=== PATIENT | female | born 1930 | race Caucasian/White ===

== ENCOUNTER 2017-03-13 09:37 | Observation (INO) | payer OTHER ==
[2017-03-13] MEDS ORDERED: LORazepam 2 MG/ML INJ IVP ONE (09:59)
[2017-03-13] MEDS ORDERED: NS 1,000 ML IV ONE ×2 (09:59→11:03)
[2017-03-13] MEDS ORDERED: LORazepam 2 MG/ML INJ ONE (10:00)
--- NOTE | 2017-03-13 10:05 | EDPHY ---
H & P Stated Complaint: increasing episodes and intensity of essential tremor Source: Patient, Family Exam Limitations: No limitations - Personal History Current Tetanus/Diphtheria Vaccine: Yes - Medical/Surgical History Hx Asthma: No Hx Chronic Respiratory Disease: Yes Hx Diabetes: No Hx Cardiac Disease: No Hx Renal Disease: No Hx Cirrhosis: No Hx Alcoholism: No Hx HIV/AIDS: No Hx Splenectomy or Spleen Trauma: No Other PMH: tremors/ruling out parkinsons - Social History Smoking Status: Never smoked HPI/ROS: CHIEF COMPLAINT: Worsening tremors HISTORY OF PRESENT ILLNESS: Patient presents with spouse and neighbor. They report that she was in [employer] this morning when she had a sudden onset of worsening tremor. She shaking all over. This is been constant for the past hour. Significantly worse than previous. She was diagnosed with essential tremor 18 months ago. She has been on medication for this, but she does not know which 1 of this. She does have a mild headache on the temples. Denies sudden onset headache. Denies severe headache. No neck pain or stiffness. No chest pain. No cough. No runny nose or sore throat. No abdominal pain. She does report dysuria and more frequent urination recently. No rashes sores or lesions. The patient's spouse feels this may be tremors and that they have decreased in intensity over the past few months. Today's is the worst she has ever had. No other associated complaints or modifying factors. REVIEW OF SYSTEMS: Ten systems reviewed and are negative unless otherwise noted in the HPI PCP: Dr. Rivers at [facility] SPECIALISTS: None PAST MEDICAL HISTORY: COPD (never smoker), GERD, hypertension, dyslipidemia PAST SURGICAL HISTORY: Multiple. Denies previous cholecystectomy or appendectomy. SOCIAL HISTORY: Never smoked. No alcohol. Lives with her spouse here in [place]. FAMILY HISTORY: Noncontributory EXAMINATION General Appearance: Alert, no distress, rigors Head: normocephalic, atraumatic the Eyes: Pupils equal and round, no conjunctival pallor or injection ENT, Mouth: Mucous membranes moist. Airway patent. Uvula midline. No erythema or edema. Neck: Normal inspection, supple, non-tender Respiratory: Lungs are clear to auscultation. No wheezing, rhonchi or crackles Cardiovascular: Regular rate and rhythm. No murmur. Pulses intact distally symmetrically Gastrointestinal: Abdomen is soft and nontender no tympany rigidity pet distension Neurological: GCS 15. A&O, nonfocal, strength is symmetric. Skin: Warm and dry, no rash. No petechiae or purpura. No abscesses or lesions Extremities: Nontender, no pedal edema. Range of motion is symmetric Psychiatric: Mood and affect normal DIFFERENTIAL DIAGNOSES: Including but not limited to sepsis, pneumonia, UTI, cholecystitis, colitis, diverticulitis, tremor MDM: 10:00 a.m. Patient is complaining of tremors, but she appears to be ill. She does appear to have rigors. She is tachycardic and tachypneic. We recognize this immediately in ordered lactic acid, blood cultures and sepsis workup. She is awake and alert conversing appropriately. She is not encephalopathic or delirious. I have ordered chest x-ray, laboratory studies, flu swab, urinalysis. All order IV fluid at this time. Also 0.5 mg of Ativan to help with her shaking. I do not feel this is essential tremor. Why do feel that she is ill, I also feel that she is stable at this time. Dr. Lovett is aware the patient and will evaluate. 10:13 a.m. Patient re-evaluated. She is IV fluid infusing. She has received point of Ativan. She is significantly more comfortable. Her vital signs have improved now. Heart rate is 76 beats per minute. Blood pressure is normotensive. 10:25 a.m. Lactic acid is 5.6. Will continue with the appropriate weight based IV fluid resuscitation. She is awake and alert. I have re-evaluated her she is feeling significantly better. Urinalysis obtained by catheterization. Suspect urosepsis. Chest x-ray has been ordered but not yet taken. 10:30 a.m. Due to the elevated lactic acid I discussed with Dr. Lovett. We have concern for foul-smelling urine, thus I have ordered Levaquin. Chest x-ray pending. 10:55 a.m. Chest x-ray does not reveal any obvious pneumonia as read by me and by Dr. Lovett. Proceed with irrigation recheck lactic acid 11:20 a.m. Recheck lactic acid is within normal limits. Still do not have a source for sepsis, but we are covering for the possibility of urosepsis. She is feeling better with occasional tremors. Proceed with admission to the hospital. 11:25 a.m. Case discussed with Marley at [facility] ([phone]). She is given approval for the patient be admitted our facility. Proceed with admission to our facility. Hospitalist paged 11:45 a.m. Case discussed with hospitalist, Bianca TEJEDA. Patient is admitted to Dr. Simpson. She is admitted in stable condition. Still do not have a clear etiology if this is sepsis, cryptogenic sepsis. She does have occasional rigors. Continue to monitor. Urine culture pending. Blood cultures pending (Donato Chau) Constitutional: Initial Vital Signs Temperature (C) 98.2 F 03/13/17 09:43 Heart Rate 108 H 03/13/17 09:43 Respiratory Rate 26 H 03/13/17 09:43 Blood Pressure 160/89 H 03/13/17 09:43 O2 Sat (%) 93 03/13/17 09:43 O2 Delivery Mode Room Air Allergies/Adverse Reactions: adhesive tape Allergy (Intermediate, Verified 03/13/17 15:52) Rash Home Medications: Medication Instructions Recorded Albuterol [Ventolin Hfa Inhaler] 2 puffs IH Q4 PRN 03/13/17 Aspirin [Aspirin 325 mg (*)] 650 mg PO Q4 PRN 03/13/17 Aspirin [Aspirin 81mg (*)] 81 mg PO HS 03/13/17 Herbals/Supplements -Info Only 1 ea PO DAILY 03/13/17 LISINOPRIL/HYDROCHLOROTHIAZIDE 0.5 each PO DAILY 03/13/17 [PRINZIDE 20-25 MG TABLET] Multivitamins [Multivitamin (*)] 1 each PO DAILY 03/13/17 Pantoprazole Sodium [Protonix 40mg 40 mg PO BID 03/13/17 (*)] Primidone [Mysoline 50mg (RX)] 25 mg PO DAILY 03/13/17 Simvastatin [Zocor] 20 mg PO DAILY 03/13/17 Tiotropium Inhaler [Spiriva 2 inh IH DAILY 03/13/17 Inhaler] Vitamin B Complex [B Complex] 1 each PO DAILY 03/13/17 Medical Decision Making - Diagnostics Imaging Results: Imaging Impressions Chest X-Ray 03/13/17 10:00 Impression: 1. Mild cardiomegaly. 2. Moderate hiatal hernia suspected. 3. Rounded density right lung base medially that could represent eventration of the right hemidiaphragm versus pericardial cyst although these were not mentioned on prior imaging reports. If indicated, consider PA and lateral review of the chest for further characterization or if indicated CT imaging. ED Course/Re-evaluation: The patient was evaluated and managed by the physician's recovery assistant. My cosignature indicates that I reviewed the chart and I agree with the findings and plan of care as documented. I am the secondary supervising physician. Personally evaluated the patient and saw her immediately after the PAs evaluation. Patient states that her regular started while at [employer]. She was feeling well prior to the onset. He came on fairly suddenly. Patient has chronic shortness of breath and is not currently worse. No chest pain. No abdominal pain, nausea or vomiting. She has had no diarrhea. She describes mild dysuria. GENERAL: Mild acute distress, alert. Shaking HEENT: Eyes normal to inspection, normal pharynx, no signs of dehydration. NECK: No thyromegaly, no lymphadenopathy, supple. RESPIRATORY: Increased RR. Clear to auscultation bilaterally, no rales, rhonchi or wheezing. CVS: Mild tachycardia, no rubs, murmurs, or gallops. ABDOMEN: Soft, nontender, nondistended, no organomegaly. BACK: Normal to inspection, no CVA tenderness. SKIN: Normal color, no rash, warm, dry. No pallor. EXTREMITIES: [No pedal edema, no calf tenderness, no Homans sign or cords, no joint swelling. NEURO/PSYCH: [Alert and oriented x3, normal mood and affect, normal motor sensory exam. 10:13: I rechecked the patient. She was feeling better. Heart rate was in the 80s. (Manasa Lovett) - Data Points Laboratory Results: Laboratory Results 03/13/17 10:15 03/13/17 10:30 03/13/17 03/13/17 03/13/17 11:08 10:30 10:15 WBC RBC Hgb Hct MCV MCH MCHC RDW Plt Count MPV Neut % (Auto) Lymph % (Auto) [place] % (Auto) Eos % (Auto) Baso % (Auto) Nucleat RBC Rel Count Absolute Neuts (auto) Absolute Lymphs (auto) Absolute Monos (auto) Absolute Eos (auto) Absolute Basos (auto) Absolute Nucleated RBC Immature Gran % Immature Gran # ESR PT INR APTT VBG Lactic Acid 1.4 mmol/L mmol/L (0.7-2.1) Sodium 135 mEq/L mEq/L (134-144) Potassium 3.6 mEq/L mEq/L (3.5-5.2) Chloride 102 mEq/L mEq/L (97-110) Carbon Dioxide 23 mEq/l mEq/l (22-31) Anion Gap 10 mEq/L mEq/L (8-16) BUN 18 mg/dL mg/dL (7-23) Creatinine 0.8 mg/dL mg/dL (0.6-1.0) Estimated GFR > 60 Glucose 83 mg/dL mg/dL (70-100) Calcium 8.1 mg/dL L mg/dL (8.5-10.4) Total Bilirubin 0.4 mg/dL mg/dL (0.1-1.4) Conjugated Bilirubin 0.2 mg/dL mg/dL (0.0-0.5) Unconjugated Bilirubin 0.2 mg/dL mg/dL (0.0-1.1) AST 17 IU/L IU/L (14-46) ALT 24 IU/L IU/L (9-52) Alkaline Phosphatase 72 IU/L IU/L (38-126) Creatine Kinase 46 IU/L IU/L (0-156) Troponin I 0.015 ng/mL ng/mL (0.000-0.034) C-Reactive Protein < 5.0 mg/L mg/L (<10.0) Total Protein 5.8 g/dL L g/dL (6.3-8.2) Albumin 3.3 g/dL L g/dL (3.5-5.0) Lipase 49 IU/L IU/L (23-300) Procalcitonin Urine Color Urine Appearance Urine pH Ur Specific Reagan Urine Protein Urine Ketones Urine Blood Urine Nitrate Urine Bilirubin Urine Urobilinogen Ur Leukocyte Esterase Urine RBC Cancelled Urine WBC Cancelled Ur Epithelial Cells Cancelled Ur Renal Epithelial Cell Cancelled Urine Crystals Cancelled Ammonium Urate Crystals Cancelled Calcium Carbonate Cryst Cancelled Calcium Phosphate Cryst Cancelled Calcium Oxalate Crystal Cancelled Leucine Crystals Cancelled Cystine Crystals Cancelled Uric Acid Crystals Cancelled Triple Phos Crystals Cancelled Sulfonamide Crystals Cancelled Cholesterol Crystals Cancelled Tyrosine Crystals Cancelled Bilirubin Crystals Cancelled Amorphous Sediment Cancelled Urine Bacteria Cancelled Epithelial Casts Cancelled Fatty Casts Cancelled Hyaline Casts Cancelled Granular Casts Cancelled Waxy Casts Cancelled Broad Casts Cancelled RBC Casts Cancelled WBC Casts Cancelled Urine Mucus Cancelled Urine Trichomonas Cancelled Urine Yeast Cancelled Urine Sperm Cancelled Ur Oval Fat Bodies Cancelled Ur Free Fat Droplets Cancelled Urine Glucose Urine Comment Cancelled 03/13/17 03/13/17 03/13/17 10:15 10:15 10:15 WBC RBC Hgb Hct MCV MCH MCHC RDW Plt Count MPV Neut % (Auto) Lymph % (Auto) [place] % (Auto) Eos % (Auto) Baso % (Auto) Nucleat RBC Rel Count Absolute Neuts (auto) Absolute Lymphs (auto) Absolute Monos (auto) Absolute Eos (auto) Absolute Basos (auto) Absolute Nucleated RBC Immature Gran % Immature Gran # ESR PT 12.3 SEC SEC (12.0-15.0) INR 0.92 (0.83-1.16) APTT 21.1 SEC L SEC (23.0-38.0) VBG Lactic Acid Sodium REJ Potassium REJ Chloride REJ Carbon Dioxide REJ Anion Gap REJ BUN REJ Creatinine REJ Estimated GFR REJ Glucose REJ Calcium REJ Total Bilirubin REJ Conjugated Bilirubin REJ Unconjugated Bilirubin REJ AST REJ ALT REJ Alkaline Phosphatase REJ Creatine Kinase Troponin I REJ C-Reactive Protein REJ Total Protein REJ Albumin REJ Lipase REJ Procalcitonin REJ Urine Color YELLOW Urine Appearance CLEAR Urine pH 5.0 (5.0-7.5) Ur Specific Reagan 1.012 (1.002-1.030) Urine Protein NEGATIVE (NEGATIVE) Urine Ketones NEGATIVE (NEGATIVE) Urine Blood NEGATIVE (NEGATIVE) Urine Nitrate NEGATIVE (NEGATIVE) Urine Bilirubin NEGATIVE (NEGATIVE) Urine Urobilinogen NEGATIVE EU EU (0.2-1.0) Ur Leukocyte Esterase NEGATIVE (NEGATIVE) Urine RBC NONE SEEN /hpf /hpf (0-3) Urine WBC 1-3 /hpf /hpf (0-3) Ur Epithelial Cells TRACE /lpf /lpf (NONE-1+) Ur Renal Epithelial Cell Urine Crystals Ammonium Urate Crystals Calcium Carbonate Cryst Calcium Phosphate Cryst Calcium Oxalate Crystal Leucine Crystals Cystine Crystals Uric Acid Crystals Triple Phos Crystals Sulfonamide Crystals Cholesterol Crystals Tyrosine Crystals Bilirubin Crystals Amorphous Sediment Urine Bacteria Epithelial Casts Fatty Casts Hyaline Casts Granular Casts Waxy Casts Broad Casts RBC Casts WBC Casts Urine Mucus Urine Trichomonas Urine Yeast Urine Sperm Ur Oval Fat Bodies Ur Free Fat Droplets Urine Glucose NEGATIVE (NEGATIVE) Urine Comment 03/13/17 03/13/17 10:15 10:15 WBC 8.73 10^3/uL 10^3/uL (3.80-9.50) RBC 4.01 10^6/uL L 10^6/uL (4.18-5.33) Hgb 11.9 g/dL L g/dL (12.6-16.3) Hct 36.7 % L % (38.0-47.0) MCV 91.5 fL fL (81.5-99.8) MCH 29.7 pg pg (27.9-34.1) MCHC 32.4 g/dL g/dL (32.4-36.7) RDW 13.9 % % (11.5-15.2) Plt Count 261 10^3/uL 10^3/uL (150-400) MPV 10.6 fL fL (8.7-11.7) Neut % (Auto) 54.9 % % (39.3-74.2) Lymph % (Auto) 30.5 % % (15.0-45.0) [place] % (Auto) 10.3 % % (4.5-13.0) Eos % (Auto) 3.2 % % (0.6-7.6) Baso % (Auto) 0.8 % % (0.3-1.7) Nucleat RBC Rel Count 0.0 % % (0.0-0.2) Absolute Neuts (auto) 4.79 10^3/uL 10^3/uL (1.70-6.50) Absolute Lymphs (auto) 2.66 10^3/uL 10^3/uL (1.00-3.00) Absolute Monos (auto) 0.90 10^3/uL H 10^3/uL (0.30-0.80) Absolute Eos (auto) 0.28 10^3/uL 10^3/uL (0.03-0.40) Absolute Basos (auto) 0.07 10^3/uL 10^3/uL (0.02-0.10) Absolute Nucleated RBC 0.00 10^3/uL 10^3/uL (0-0.01) Immature Gran % 0.3 % % (0.0-1.1) Immature Gran # 0.03 10^3/uL 10^3/uL (0.00-0.10) ESR 90 MM/HR H MM/HR (0-30) PT INR APTT VBG Lactic Acid 5.6 mmol/L H mmol/L (0.7-2.1) Sodium Potassium Chloride Carbon Dioxide Anion Gap BUN Creatinine Estimated GFR Glucose Calcium Total Bilirubin Conjugated Bilirubin Unconjugated Bilirubin AST ALT Alkaline Phosphatase Creatine Kinase Troponin I C-Reactive Protein Total Protein Albumin Lipase Procalcitonin Urine Color Urine Appearance Urine pH Ur Specific [place] Urine Protein Urine Ketones Urine Blood Urine Nitrate Urine Bilirubin Urine Urobilinogen Ur Leukocyte Esterase Urine RBC Urine WBC Ur Epithelial Cells Ur Renal Epithelial Cell Urine Crystals Ammonium Urate Crystals Calcium Carbonate Cryst Calcium Phosphate Cryst Calcium Oxalate Crystal Leucine Crystals Cystine Crystals Uric Acid Crystals Triple Phos Crystals Sulfonamide Crystals Cholesterol Crystals Tyrosine Crystals Bilirubin Crystals Amorphous Sediment Urine Bacteria Epithelial Casts Fatty Casts Hyaline Casts Granular Casts Waxy Casts Broad Casts RBC Casts WBC Casts Urine Mucus Urine Trichomonas Urine Yeast Urine Sperm Ur Oval Fat Bodies Ur Free Fat Droplets Urine Glucose Urine Comment Medications Given: Discontinued Medications Sodium Chloride (Ns) 1,000 mls @ 0 mls/hr IV EDNOW ONE; Wide Open PRN Reason: Protocol Stop: 03/13/17 10:00 Last Admin: 03/13/17 10:06 Dose: 1,000 mls Levofloxacin/Dextrose (Levaquin 750 Mg (Premix)) 150 mls @ 100 mls/hr IV EDNOW ONE PRN Reason: Protocol Stop: 03/13/17 12:13 Last Admin: 03/13/17 11:00 Dose: 150 mls Sodium Chloride (Ns) 1,800 mls @ 300 mls/hr 30 ml/kg infuse over 6 hr (1800 ml ) IV EDNOW ONE PRN Reason: Protocol Stop: 03/13/17 16:43 Last Admin: 03/13/17 11:02 Dose: Not Given Sodium Chloride (Ns) 1,000 mls @ 0 mls/hr IV ONCE ONE PRN Reason: Wide Open Stop: 03/13/17 11:04 Last Admin: 03/13/17 11:03 Dose: 1,000 mls Lorazepam (Ativan Injection) 0.5 mg IVP EDNOW ONE Stop: 03/13/17 10:00 Last Admin: 03/13/17 10:06 Dose: 0.5 mg Departure - Departure Disposition: [facility] Acute Clinical Impression: Lactic acidosis, Rigors Sepsis Qualifiers: Sepsis type: sepsis due to unspecified organism Qualified Code(s): A41.9 - Sepsis, unspecified organism Condition: Good
[2017-03-13 10:22] LABS: % IMMATURE GRANULYOCYTES 0.3 % (0.0-1.1); ABSOLUTE IMMATURE GRANULOCYTES 0.03 10^3/uL (0.00-0.10); ADD DIFF? NO; ADD MORPH? NO; ADD SCAN? NO; ATYPICAL LYMPHOCYTE FLAG 10 (0-99); FRAGMENT RBC FLAG 0 (0-99); HEMATOCRIT 36.7 % (38.0-47.0); HEMOGLOBIN 11.9 g/dL (12.6-16.3); LEFT SHIFT FLG 0 (0-99); LIPEMIA HEMOLYSIS FLAG 80 (0-99); MEAN CELL HEMOGLOBIN 29.7 pg (27.9-34.1); MEAN CELL HEMOGLOBIN CONCENTR. 32.4 g/dL (32.4-36.7); MEAN CELL VOLUME 91.5 fL (81.5-99.8); MEAN PLATELET VOLUME 10.6 fL (8.7-11.7); PLATELET CLUMPS FLAG 0 (0-99); PLATELET COUNT 261 10^3/uL (150-400); RED BLOOD CELL COUNT 4.01 10^6/uL (4.18-5.33); RED CELL DISTRIBUTION WIDTH 13.9 % (11.5-15.2)
[2017-03-13 10:31] LABS: INR 0.92 (0.83-1.16); PROTIME(PATIENT) 12.3 SEC (12.0-15.0)
[2017-03-13 10:32] LABS: APTT 21.1 SEC (23.0-38.0)
[2017-03-13 10:33] LABS: COLOR YELLOW; LEUKOCYTE ESTERASE,URINE NEGATIVE (NEGATIVE); NITRITE,URINE NEGATIVE (NEGATIVE)
[2017-03-13 10:35] LABS: LACGHOST ORDER
[2017-03-13] MEDS ORDERED: NS 1,800 ML IV ONE (10:44)
[2017-03-13 10:46] LABS: RBC,URINE NONE SEEN /hpf (0-3)
[2017-03-13 10:48] LABS: SEDIMENTATION RATE 90 MM/HR (0-30)
--- NOTE | 2017-03-13 10:58 | CPEKG ---
Heart Rate: 79 RR Interval: 759 QRSD Interval: 114 QT Interval: 440 QTC Interval: 505 QRS [place]: 32 T Wave [place]: 25 EKG Severity - ABNORMAL ECG - EKG Impression: ATRIAL FIBRILLATION EKG Impression: NONSPECIFIC INTRAVENTRICULAR CONDUCTION DELAY Electronically Signed By: Manasa Lovett 13-Mar-2017 14:26:42
[2017-03-13 11:01] LABS: ALANINE AMINOTRANSFERASE 24 IU/L (9-52); ALBUMIN 3.3 g/dL (3.5-5.0); ALKALINE PHOSPHATASE 72 IU/L (38-126); ANION GAP 10 mEq/L (8-16); ASPARTATE AMINOTRANSFERASE 17 IU/L (14-46); BILIRUBIN,TOTAL 0.4 mg/dL (0.1-1.4); BILIRUBIN-CONJUGATED 0.2 mg/dL (0.0-0.5); BILIRUBIN-UNCONJUGATED 0.2 mg/dL (0.0-1.1); C-REACTIVE PROTEIN < 5.0 mg/L (<10.0); CALCIUM 8.1 mg/dL (8.5-10.4); CARBON DIOXIDE 23 mEq/l (22-31); CHLORIDE 102 mEq/L (97-110); CREATININE 0.8 mg/dL (0.6-1.0); GLOMERULAR FILTRATION RATE > 60; GLUCOSE 83 mg/dL (70-100); POTASSIUM 3.6 mEq/L (3.5-5.2); SODIUM 135 mEq/L (134-144); TOTAL PROTEIN 5.8 g/dL (6.3-8.2)
[2017-03-13 11:10] LABS: TROPONIN I 0.015 ng/mL (0.000-0.034)
[2017-03-13 15:38] VITALS: RESP 16
[2017-03-13] MEDS ORDERED: ONDANSETRON 4 MG/2 ML VIAL IVP PRN (16:48)
[2017-03-13] MEDS ORDERED: ALBUTEROL 3 ML DEYVIAL IH PRN (16:48)
[2017-03-13] MEDS ORDERED: ONDANSETRON DISINTEGRATING 4 MG TAB PO PRN (16:48)
[2017-03-13] MEDS ORDERED: LORazepam 0.5 MG TAB PO PRN (16:48)
[2017-03-13] MEDS ORDERED: ACETAMINOPHEN 325 MG TAB PO PRN (16:48)
[2017-03-13] MEDS ORDERED: LISINOPRIL PO SCH (17:00)
[2017-03-13] MEDS ORDERED: HYDROCHLOROTHIAZIDE PO SCH (17:00)
[2017-03-13] MEDS ORDERED: [UNRECOGNIZED DRUG - OTHER] PO SCH (17:00)
--- NOTE | 2017-03-13 17:24 | GHP ---
[f rep st] HISTORY AND PHYSICAL DATE OF ADMISSION: 03/13/2017 CHIEF COMPLAINT: Tremors. HISTORY OF PRESENT ILLNESS: This is an 86-year-old female, who approximately 18 months ago was diagn osed with an essential tremor by her physician, Dr. Rivers, at [facility]. She has since that time been o n medication and has had some improvement with the use of medication in her essential tremor. Today, she was in muslim and suddenly had shaking all over and weakness, along with a severe headache rated 7 or 8/10. The headache was bitemporal, not associated with a scotomata, although she felt weak and there was no vertigo. Additionally, she did not have associated nausea, vomiting, diaphoresis, ches t pain, or shortness of breath. She simply was shaking, weak, and experiencing a headache. Her husb and, who has seen her have her tremors previously, noted he has never seen anything like this previou sly. The onset of the symptoms was quite sudden, was not associated with fever, chills, sweats, naus ea or vomiting. There is also no dysarthria, although she did not speak much during the episode, and she did not note any focal weakness of her hands or feet. She simply felt weak all over. She denie s back pain, dysuria, recent sore throat or cough. She has not been close to anyone acutely ill. PAST MEDICAL HISTORY: Denies asthma, allergies and diabetes. She does have hypertension, which is c urrently under treatment, and her dose of lisinopril has been decreased from 40 mg a day to 20 mg a d ay with improved control. She was experiencing low blood pressure with the higher dose. PAST SURGICAL HISTORY: Noncontributory. ALLERGIES: Adhesive tape. No medical allergies. REVIEW OF SYSTEMS: A 10-point review of systems is otherwise negative, except as noted above. She d id have a headache, but she does not chronically experience headaches. There has been no prior histo ry of a seizure disorder, CVA or TIA. It was noted she was diagnosed with an essential tremor by her physician 18 months ago, and is under treatment. There is no prior history of coronary disease, and she did not experience chest pain with this. She does have underlying lung disease described as [employer] D, although she has never smoked cigarettes. She does use oxygen approximately 1 L/minute on an inte rmittent basis throughout the day and sometimes at night. She has a chronic history of GERD, for whi ch she does take Protonix on a daily basis. She denies chronic bowel disorder, and usually moves her bowels well. She has a history of recurrent urinary tract infections, and may experience 1 or 2 inf ections a year. Her last infection was 6 months ago, and was treated through [facility]. She knows of n o structural renal or bladder abnormalities. Joints are without recent inflammation or chronic probl ems. FAMILY HISTORY: Noncontributory. She has no history of early coronary artery disease or seizure dis order. SOCIAL HISTORY: She is , and was accompanied today by her . She has never smoked, and rarely uses alcohol, and does not use drugs. PHYSICAL EXAM: GENERAL: A pleasant alert female whom I am seeing after admission on the medical beronica gical floor. She was initially hypertensive, tachycardic, tachypneic, and had an elevated lactate co nsistent with a sepsis syndrome. When I am seeing her, her blood pressure is now normal. She has be en afebrile since admission. Her heart rate is in the normal range, and respirations are normal with oxygen saturation of 98% on supplemental oxygen. HEENT: Her scalp is atraumatic. Tongue and bucca l mucosa are normal without lesions. NECK: Supple without meningismus. No adenopathy is noted in t he cervical, axillary, or inguinal region. Pulses are 2+ at the carotids, radials, and femorals with out bruit. CHEST WALL: Nontender to palpation and without inspiratory splinting. LUNGS: Clear to P and A without wheezing or rales. HEART: Singular S1, S2. Normal rate. Normal S1, S2 without mur mur or gallop. ABDOMEN: Thin, normoactive bowel sounds. No masses, tenderness, or organomegaly. E XTREMITIES: No edema, cyanosis, or clubbing. Negative Homans sign. NEUROLOGIC: Oriented x3 female who demonstrates an essential tremor primarily in her right side in the right hand. Cranial nerves 2-12 are otherwise intact. Her gait was not tested at this time. LABORATORY: CBC showed a slight decline in hemoglobin at 12 with a normal white count of 8,000 and a normal differential. The white count coagulation is normal. Venous lactate was elevated at 5.6 ini tially, and then fell within 1 hour after fluid hydration to a normal range of 1.4. Chemistry panel was entirely normal with a slightly low albumin at 3.3. Urinalysis is entirely clear, showing no red cells and 1-3 white cells. A culture was not indicated. Serology was negative for the flu. There are cultures pending of blood and urine. The patient was given 2 L of normal saline in the Emergency Department. She also received lorazepam twice, along with a dose of levofloxacin 750 mg. Chest x-ray is described as having borderline cardiomegaly with a possible eventration of the diaphra gm. There is no active pulmonary disease seen. ECG, to my reading, shows significant mechanical noise or tremor noted. There is very low voltage in the frontal plane and in the precordial region, suggestive of a pericardial effusion. There is no S T or T-wave changes. Of note, sinus rhythm is noted to be at approximately 80. The technical qualit y is poor. ASSESSMENT: 1. Acute weakness with a headache, along with profound shaking, very consistent with a possible seps is syndrome. Despite that, her white count is normal, and she clinically has no symptoms or site of possible infection. The chest x-ray is clear, and her urine is also not suggestive of an acute infec tion. We have cultures pending at this point, and we will follow them up. She has received 1 dose o f Levaquin, and I plan to hold off repeating this until we review her CBC and her clinical situation. It is possible this acute shaking was simply a worsening of her underlying essential tremor disorde r. I have not been able to characterize the tremor well, and we will contact her physician tomorrow for further clarification. 2. Sepsis with hypertension, tachypnea, tachycardia, and an elevated lactate on admission. Possible origin is the urinary tract. 3. Essential tremor disorder, currently under treatment. 4. Hypertension. She was moderately hypertensive on admission, but has fallen to normal range. We will continue her usual antihypertensive medications. 5. Gastroesophageal reflux disease. We will continue the Protonix. 6. Dyslipidemia. We will continue her Lipitor. CODE STATUS: Full. Her surrogate for decision-making is her , who is in attendance. BILLING: The patient will be admitted to observation status, as it is possible we will resolve matte rs in less than 2 midnights. TIME: This admission required 55 minutes. /[id number]/MODL
[2017-03-13] MEDS: LISINOPRIL/HCTZ 10/12.5 MG 1 EA TAB PO SCH (17:53)
[2017-03-13] MEDS: PRIMIDONE 50 MG TAB PO SCH (17:55)
[2017-03-13] MEDS: PANTOPRAZOLE SODIUM 40 MG TAB PO SCH (20:18)
[2017-03-13] MEDS ORDERED: ASPIRIN 81 MG CHEWABLE TAB PO SCH (21:00)
[2017-03-14 05:28] LABS: ADD DIFF? NO; ADD MORPH? NO; ADD SCAN? NO; ATYPICAL LYMPHOCYTE FLAG 10 (0-99); FRAGMENT RBC FLAG 0 (0-99); HEMATOCRIT 29.4 % (38.0-47.0); HEMOGLOBIN 9.4 g/dL (12.6-16.3); LEFT SHIFT FLG 0 (0-99); LIPEMIA HEMOLYSIS FLAG 80 (0-99); MEAN CELL HEMOGLOBIN 29.6 pg (27.9-34.1); MEAN CELL VOLUME 92.5 fL (81.5-99.8); MEAN PLATELET VOLUME 10.5 fL (8.7-11.7); PLATELET CLUMPS FLAG 0 (0-99); PLATELET COUNT 189 10^3/uL (150-400); RED BLOOD CELL COUNT 3.18 10^6/uL (4.18-5.33)
[2017-03-14 05:42] LABS: ALANINE AMINOTRANSFERASE 26 IU/L (9-52); ALKALINE PHOSPHATASE 60 IU/L (38-126); ANION GAP 7 mEq/L (8-16); ASPARTATE AMINOTRANSFERASE 17 IU/L (14-46); BILIRUBIN,TOTAL 0.6 mg/dL (0.1-1.4); CALCIUM 8.8 mg/dL (8.5-10.4); CARBON DIOXIDE 26 mEq/l (22-31); CHLORIDE 102 mEq/L (97-110); CREATININE 0.8 mg/dL (0.6-1.0); GLOMERULAR FILTRATION RATE > 60; GLUCOSE 86 mg/dL (70-100); MAGNESIUM 1.5 mg/dL (1.6-2.3); POTASSIUM 3.9 mEq/L (3.5-5.2); SODIUM 135 mEq/L (134-144); TOTAL PROTEIN 5.1 g/dL (6.3-8.2)
[2017-03-14 08:34] VITALS: O2SAT 95
[2017-03-14] MEDS ORDERED: NON-FORMULARY NEW DRUG (Simvastatin [Zocor] 20 MG) PO SCH (09:00)
[2017-03-14] MEDS ORDERED: VITAMIN B COMPLEX 1 EA CAP/TAB PO SCH (09:00)
[2017-03-14] MEDS ORDERED: ATORVASTATIN CALCIUM 10 MG TAB PO SCH (09:00)
[2017-03-14] MEDS ORDERED: ENOXAPARIN 40 MG/0.4 ML SYR SC SCH (09:00)
[2017-03-14] MEDS ORDERED: TIOTROPIUM INHALER 18 MCG/DOSE 5 DOSE/MDI IH SCH (09:00)
[2017-03-14] MEDS ORDERED: MULTIVITAMINS 1 EACH TAB PO SCH (09:00)
[2017-03-14] MEDS: LISINOPRIL/HCTZ 10/12.5 MG 1 EA TAB PO SCH (09:48)
[2017-03-14] MEDS: PRIMIDONE 50 MG TAB PO SCH (09:53)
[2017-03-14] MEDS: PANTOPRAZOLE SODIUM 40 MG TAB PO SCH (09:58)
[2017-03-14 12:23] VITALS: BP 137/76; PULSE 72; TEMP 98.2
--- NOTE | 2017-03-14 14:48 | ASMTCASEMG ---
Living Arrangements What is your living Answers: With Spouse arrangement? Who do you live with? Type Of Residence What kind of residence do Answers: House you live in? Discharge Plan Comments Coordination Status Comments Notes: Pt is a 86 y/o female admitted w/ rigors and sepsis. CM met w/ pt and for dispo planning. Pt and does not anticipate having any needs. Pt will d/c independent. CM available for changes. Date Signed: 03/14/2017 02:48 PM Electronically Signed By:JUDITH Carpenter
--- NOTE | 2017-03-14 15:32 | GDS ---
[f rep st] DISCHARGE SUMMARY KNOWN ACUTE DIAGNOSES ON THIS ADMISSION: 1. Acute weakness with headache. 2. Sepsis with an unknown organism with hypertension, tachycardia, tachypnea and an elevated lactate on admission, now resolved. 3. Essential tremor disorder with possible acute exacerbation as a presenting symptom. 4. Hypertension. 5. Gastroesophageal reflux disease. 6. Dyslipidemia. CHRONIC DIAGNOSES: 1. Acute weakness with headache. 2. Sepsis with an unknown organism with hypertension, tachycardia, tachypnea and an elevated lactate on admission, now resolved. 3. Essential tremor disorder with possible acute exacerbation as a presenting symptom. 4. Hypertension. 5. Gastroesophageal reflux disease. 6. Dyslipidemia. CONSULTATIONS: None. PROCEDURES: None. HOSPITAL COURSE: This is an 86-year-old female who carries an 18-month diagnosis of essential tremor being treated with [place] through Dr. Rivers at [facility]. On the day of admission, she presented wit h a sudden onset of a bitemporal headache not associated with scotomata but associated with weakness of both the arms and legs and an inability to stand. She denied chest pain, shortness of breath, pal pitations, nausea, vomiting, or recent fever. On presentation to the emergency department, she was f ound to be hypertensive at 160/89, tachycardia of 108 and tachypnea of 26. A lactate level was eleva gary at 5.6. She was given 2 L of fluid in the emergency department along with Ativan 2.5 mg and Leva daphne 750 mg, the latter in belief of a possible urinary tract infection. She was admitted. At the t duane of admission, her vital signs had stabilized and she was alert and oriented. Physical exam showe d only her essential tremor on the right side. During the hospitalization, she had no recurrence of the sudden episodes of weakness. Chemistry panel was entirely normal except for a low albumin at 3.3 . Hemoglobin fell from 11.9 to 9.4, without signs of bleeding. Lactate normalized to 1.4. Urinalys is was entirely clear without white cells or red cells and no culture was needed, and she was negativ e for flu. As she had no recurrence and it was possible that this episode represented a severe exacerbation of h er essential tremor disorder and given the fact that she had stabilized, it was elected to have her f ollow up with her PCP. CT scan, MRI and EEG were not performed due to the fact that she was now stab le and wished to be discharged. LABORATORY DATA: Laboratories of note at the time of discharge: Two blood cultures are pending. Ur ine culture preliminarily showed no growth at 18 hours. Influenza was negative. Hemoglobin 9.4 at d ischarge. Lactate had normalized to 1.4 and her chemistry panel was normal. DISCHARGE MEDICATIONS: These will be the same as her admission medication and as follows: ASA 325 m g q.4 hours p.r.n., albuterol HFA 2 puffs q.4 hours p.r.n., vitamin B complex, Spiriva inhaler 2 inha lations daily, simvastatin 20 mg daily, primidone 50 mg daily, Protonix 40 mg twice daily, multivitam in daily, lisinopril/hydrochlorothiazide 20/25 mg one-half tablet daily, aspirin 81 mg at bedtime. PLAN: The patient is discharged to home in the accompaniment of her . She felt she was stabl e and wished to return home. Followup is planned with Dr. Rivers, her PCP at [facility]. I have placed a call to Dr. Rivers and hope to speak with him to inform him of the hospitalization and problem. Matters to be addressed at the first followup: I have suggested that we evaluate whether this is lars ly a worsening of her essential tremor or representation of another problem, but possible MRI, EEG an d neurology consultation may be helpful. Additionally, note that the patient is suffering from GERD and is on Protonix 40 mg twice daily. She also in her medications has aspirin 325 mg every 4 hours a s needed for pain along with a baby aspirin a day. If she is in fact taking this quantity of aspirin , it certainly will exacerbate her gastritis and it may be advisable to sort out a different pain med ication should she need it. TIME: This discharge required 45 minutes, greater than 50% to residential treatment counselor and coordinate her care. /[id number]/MODL
--- NOTE | 2017-03-15 16:59 | ASDISCHSUM ---
Discharge Information Plan Status:Home with No Needs Medically Cleared to Leave:03/14/2017 Discharge Date:03/14/2017 03:36 PM CM D/C Disposition: ADT D/C Disposition:Home, Routine, Self-Care Projected Discharge Date:03/14/2017 12:00 AM Transportation at D/C: Discharge Delay Reason: Follow-Up Date:03/14/2017 12:00 AM Discharge Slot: Final Diagnosis: Placement Information Patient Contact Information Contact Name:ROMEL Relationship: Address:[address] Work Phone: City:[place] Alternate Phone: State/Zip Code:[place] [address] Email: Financial Information Financial Class:Medicare Advantage Plans Primary Plan Desc:[employer] ADV IP Primary Plan Number:[id number] Secondary Plan Desc: Secondary Plan Number: Assessment Information [facility] Initial CM Assessment Living Arrangements What is your living Answers: With Spouse arrangement? Who do you live with? Type Of Residence What kind of residence do Answers: House you live in? Discharge Plan Comments Coordination Status Comments Notes: Pt is a 86 y/o female admitted w/ rigors and sepsis. CM met w/ pt and for dispo planning. Pt and does not anticipate having any needs. Pt will d/c independent. CM available for changes. Date Signed: 03/14/2017 02:48 PM Electronically Signed By:JUDITH Carpenter Intervention Information Intervention Type:*Incorrect Registration Date of Service:03/13/2017 04:52 PM Patient Type:Observation Staff Member:IVETH Peguero Shelly Hours:0.25 Discipline: Severity:1 (0-1 Hours) Comment:Registered inpatient, admit order writ ten observation status. Intervention Type:*JUAREZ-Signed Date of Service:03/14/2017 09:37 AM Patient Type:Observation Staff Member:Negar Cleaning Hours: Discipline: Severity: Comment:
== END 2017-03-14 15:36 | disposition home or self-care (01) ==
LOC: INTOOBSV 11:45 → F3E 12:42
PROVIDERS: ADMIT Internal Medicine Pulmonary Disease; ATTEND Internal Medicine Pulmonary Disease
DX: A41.9 Sepsis, unspecified organism (principal); G25.0 Essential tremor; I10 Essential (primary) hypertension; K21.9 Gastro-esophageal reflux disease without esophagitis; E78.5 Hyperlipidemia, unspecified
CPT/HCPCS: 71010; 93005; 97165; G0378; G8987; G8988; G8989; 96365; J1650; J1956; J2060